=== PATIENT | male | born 1935 | race Caucasian/White ===

== ENCOUNTER 2016-11-04 10:56 | Outpatient (CLI) | payer MEDICARE | END 2016-11-04 10:57 | disposition home or self-care (01) | DX: C61 Malignant neoplasm of prostate (principal) | CPT/HCPCS: 78306; A9503 ==

== ENCOUNTER 2016-12-07 15:34 | Outpatient (CLI) | payer MEDICARE | END 2016-12-07 15:35 | disposition home or self-care (01) | DX: E03.9 Hypothyroidism, unspecified (principal); Z79.899 Other long term (current) drug therapy ==

== ENCOUNTER 2017-02-01 16:05 | Outpatient (CLI) | payer MEDICARE | END 2017-02-01 16:06 | disposition home or self-care (01) | LOC: LAB.R 16:05 | PROVIDERS: ATTEND Internal Medicine | DX: E03.9 Hypothyroidism, unspecified (principal); Z79.899 Other long term (current) drug therapy | CPT/HCPCS: 84443 ==

== ENCOUNTER 2017-06-09 08:00 | Outpatient (CLI) | payer MEDICARE | END 2017-06-09 08:01 | disposition home or self-care (01) | LOC: LAB.R 08:00 | PROVIDERS: ATTEND Internal Medicine | DX: Z79.899 Other long term (current) drug therapy (principal); E03.9 Hypothyroidism, unspecified | CPT/HCPCS: 84443 ==

== ENCOUNTER 2017-08-27 12:39 | Outpatient (CLI) | payer MEDICARE | END 2017-08-27 12:40 | disposition home or self-care (01) | LOC: LAB.R 12:39 | PROVIDERS: ATTEND Internal Medicine | DX: E03.9 Hypothyroidism, unspecified (principal) | CPT/HCPCS: 84443 ==

== ENCOUNTER 2017-10-26 15:25 | Outpatient (CLI) | payer MEDICARE | END 2017-10-26 15:26 | disposition home or self-care (01) | LOC: LAB.R 15:25 | PROVIDERS: ATTEND Internal Medicine | DX: E03.9 Hypothyroidism, unspecified (principal) | CPT/HCPCS: 84443 ==

== ENCOUNTER 2017-12-14 08:00 | Outpatient (CLI) | payer MEDICARE ==
[2017-12-14 18:37] LABS: CALCIUM 8.8 mg/dL (8.5-10.3); CREATININE 1.3 mg/dL (0.6-1.2)
== END 2017-12-14 08:01 ==
LOC: LAB.R 08:00
PROVIDERS: ATTEND Internal Medicine
DX: N18.9 Chronic kidney disease, unspecified (principal)
CPT/HCPCS: 80048

== ENCOUNTER 2018-04-04 12:14 | Outpatient (CLI) | payer MEDICARE ==
--- NOTE | 2018-04-04 15:47 | XRAY Report ---
Procedure Date: 04/04/2018 Accession Number: [id number] / [id number] Procedure: XR - Pelvis 1 View CPT Code: FULL RESULT: EXAM: Pelvis 1 View DATE: 04/04/2018 1:02 PM CLINICAL HISTORY: LBP COMPARISON: None. TECHNIQUE: 1 view. FINDINGS: Bones: Normal. No fracture or bone lesion. Joints: Loss of femoral acetabular joint space, moderate bilaterally. Pubic symphysis is unremarkable bilaterally. Soft Tissues: Prostatic radiation seeds. 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 RADIA
--- NOTE | 2018-04-04 19:19 | XRAY Report ---
Procedure Date: 04/04/2018 Accession Number: [id number] / [id number] Procedure: XR - Lumbar Spine 2 View CPT Code: FULL RESULT: EXAM: Lumbar Spine 2 View DATE: 04/04/2018 1:02 PM CLINICAL HISTORY: Low back pain after fall COMPARISON: 01/18/2015. TECHNIQUE: 2 views. FINDINGS: There are 5 nonrib-bearing vertebral bodies. Interval development of a compression fracture of L1 with 50% loss of height. The compression fracture of L2 is again seen, similar in appears 50-75% loss of height. There is now early development of severe lumbar kyphosis centered about the tube prolapsed vertebral bodies. Advanced atherosclerotic disease is noted. IMPRESSION: Interval development of a compression fracture of L1. RADIA
== END 2018-04-04 12:15 | disposition home or self-care (01) ==
LOC: DI 12:14
PROVIDERS: ATTEND Internal Medicine
DX: S32.019A Unspecified fracture of first lumbar vertebra, initial encounter for closed fracture (principal); M16.0 Bilateral primary osteoarthritis of hip
CPT/HCPCS: 72100; 72170

== ENCOUNTER 2018-06-13 11:14 | Outpatient (CLI) | payer MEDICARE ==
--- NOTE | 2018-06-13 17:38 | XRAY Report ---
Reason: LUNG NODULE Procedure Date: 06/13/2018 Accession Number: [id number] / [id number] Procedure: XR - Chest 2 View X-Ray CPT Code: 08043 FULL RESULT: EXAM: CHEST RADIOGRAPHY EXAM DATE: 06/13/2018 11:28 AM. CLINICAL HISTORY: LUNG NODULE. COMPARISON: 03/09/2012 TECHNIQUE: 2 views. FINDINGS: Lungs/Pleura: Nodular area of increased density projected over the mid to lower left chest, likely related to the left fourth rib, present 03/09/2012 and 02/08/2006 and likely stable. No focal opacities evident. No pleural effusion. No pneumothorax. Normal volumes. Mediastinum: Heart and mediastinal contours are unremarkable. Dual-lead left subclavian transvenous pacemaker. Small hiatal hernia. Other: Dense right sixth lateral rib, question blastic lesion versus trauma. Additional increased density lower lateral right rib. Degenerative change in the spine with multiple compression fractures IMPRESSION: Right rib densities as above new since 2011, question blastic lesion versus posttraumatic. Stable left mid chest lesion, likely related to the left fourth rib. Clear lungs.
== END 2018-06-13 11:15 | disposition home or self-care (01) ==
LOC: DI 11:14
PROVIDERS: ATTEND Internal Medicine
DX: R91.8 Other nonspecific abnormal finding of lung field (principal)
CPT/HCPCS: 71046

== ENCOUNTER 2019-02-20 15:54 | Outpatient (CLI) | payer MEDICARE ==
[2019-02-20 16:12] LABS: BASOPHILS % (AUTO) 0.5 %; EOSINOPHILS # (AUTO) 0.1 10^3/uL (0.0-0.7); EOSINOPHILS % (AUTO) 0.9 %; HGB - HEMOGLOBIN 13.1 g/dL (14.0-18.0); LYMPHOCYTES # (AUTO) 1.8 10^3/uL (1.5-3.5); LYMPHOCYTES % (AUTO) 26.9 %; MEAN CORPUSCULAR HEMOGLOBIN 32.6 pg (27.0-31.0); MEAN CORPUSCULAR HGB CONC 33.2 g/dL (32.0-36.0); MEAN PLATELET VOLUME 9.1 fL (7.4-11.4); MONOCYTES # (AUTO) 0.8 10^3/uL (0.0-1.0); MONOCYTES % (AUTO) 12.5 %; NEUTROPHILS # (AUTO) 3.9 10^3/uL (1.5-6.6); NEUTROPHILS % (AUTO) 58.7 %; PLT - PLATELET COUNT 227 10^3/uL (130-450); RED BLOOD COUNT 4.02 10^6/uL (4.70-6.10); RED CELL DISTRIBUTION WIDTH 12.6 % (12.0-15.0); WHITE BLOOD COUNT 6.6 x10^3/uL (4.8-10.8)
[2019-02-20 16:24] LABS: ALBUMIN 4.1 g/dL (3.2-5.5); ALBUMIN/GLOBULIN RATIO 1.5 (1.0-2.2); BILIRUBIN,TOTAL 1.2 mg/dL (0.2-1.0); CREATININE 1.5 mg/dL (0.6-1.2); TOTAL PROTEIN 6.9 g/dL (6.7-8.2)
[2019-02-20 16:38] LABS: T4 (THYROXINE) 8.44 ug/dL (6.09-12.23)
[2019-02-20 16:42] LABS: THYROID STIMULATING HORMONE 2.23 uIU/mL (0.34-5.60)
== END 2019-02-20 15:55 | disposition home or self-care (01) ==
LOC: LAB 15:54
PROVIDERS: ATTEND Family Medicine
DX: E87.1 Hypo-osmolality and hyponatremia (principal); I10 Essential (primary) hypertension; E03.9 Hypothyroidism, unspecified
CPT/HCPCS: 80053; 84436; 84443; 84481; 85025

== ENCOUNTER 2019-03-07 11:45 | Outpatient (CLI) | payer MEDICARE ==
--- NOTE | 2019-03-08 08:57 | Nuclear Medicine Report ---
Reason: PROSTATE CA Procedure Date: 03/07/2019 Accession Number: [id number] / [id number] Procedure: NM - Bone Whole Body CPT Code: FULL RESULT: EXAM: BONE SCAN EXAM DATE: 03/07/2019 04:13 PM. CLINICAL HISTORY: PROSTATE CA. COMPARISON: BONE WHOLE BODY 11/04/2016 9:50 AM PELVIS 1 VIEW 04/04/2018 12:27 PM. TECHNIQUE: Following the intravenous administration of 33 mCi of technetium 99m MDP and an appropriate delay, a whole-body scan was performed in anterior and posterior projections. Site-specific spot views of the region of interest were obtained in various projections. FINDINGS: Normal renal radiotracer uptake and bladder activity. Normal soft tissue activity. Overall normal osseous uptake. There is increased fairly intense uptake at approximately T12, indeterminate, metastasis and/or compression fracture are diagnostic considerations. Otherwise largely similar mild multilevel lumbar spinal uptake. Previously identified uptake at the right posterior sixth rib has resolved. There is decreased mild to moderate uptake at the bilateral first ribs. There is new mild focal uptake at the left anterior third rib, possibly posttraumatic. There is a similar focal uptake in the region of the superior left SI joint/posterior ilium and at the posterior right iliac wing. There is slightly decreased uptake at the lateral left iliac wing. There is new mild to moderate somewhat linear uptake at the mid sacrum horizontally and in the region of the SI joints bilaterally, metastatic disease versus sacral insufficiency fracture. IMPRESSION: 1. Previously identified rib lesions showed decreased uptake. New mild focal uptake at the left anterior third rib, possibly posttraumatic. 2. New mild to moderate somewhat linear uptake at the mid sacrum and in the region of the SI joints bilaterally, indeterminate, metastatic disease versus sacral insufficiency fracture. 3. Increased fairly intense uptake at T12, indeterminate, metastasis and/or compression fracture are diagnostic considerations. RADIA
== END 2019-03-07 11:46 | disposition home or self-care (01) ==
LOC: MAC.CH 11:45
PROVIDERS: ATTEND Internal Medicine Hematology & Oncology
DX: C61 Malignant neoplasm of prostate (principal)
CPT/HCPCS: 78306

== ENCOUNTER 2019-04-28 20:15 | Outpatient (CLI) | payer MEDICARE | END 2019-04-28 20:16 | disposition EMS.NT | LOC: EMS 20:15 | PROVIDERS: ATTEND Surgery | DX: R53.1 Weakness (principal) ==

== ENCOUNTER 2019-04-28 21:48 | Outpatient (CLI) | payer MEDICARE | END 2019-04-28 21:49 | disposition EMS.NT | LOC: EMS 21:48 | PROVIDERS: ATTEND Surgery | DX: R53.1 Weakness (principal) ==

== ENCOUNTER 2020-02-23 18:26 | Outpatient (CLI) | payer MEDICARE | END 2020-02-23 18:27 | disposition critical access hospital (66) | LOC: EMS 18:26 | PROVIDERS: ATTEND Surgery | DX: R11.0 Nausea (principal); R53.1 Weakness; R26.81 Unsteadiness on feet | CPT/HCPCS: A0425; A0429 ==

== ENCOUNTER 2020-02-23 18:37 | Emergency (ER) | payer MEDICARE ==
[2020-02-23] MEDS ORDERED: SODIUM CHLORIDE 0.9% 1,000 ML IV STA (18:59)
[2020-02-23 19:18] LABS: BASOPHILS % (AUTO) 0.2 %; EOSINOPHILS % (AUTO) 0.1 %; HGB - HEMOGLOBIN 15.2 g/dL (14.0-18.0); LYMPHOCYTES % (AUTO) 10.2 %; MEAN CORPUSCULAR HEMOGLOBIN 32.7 pg (27.0-31.0); MEAN CORPUSCULAR VOLUME 93.3 fL (80.0-94.0); MEAN PLATELET VOLUME 10.3 fL (7.4-11.4); NEUTROPHILS # (AUTO) 8.1 10^3/uL (1.5-6.6); NEUTROPHILS % (AUTO) 78.9 %; PLT - PLATELET COUNT 229 10^3/uL (130-450); RED BLOOD COUNT 4.65 10^6/uL (4.70-6.10); RED CELL DISTRIBUTION WIDTH 15.3 % (12.0-15.0); WHITE BLOOD COUNT 10.2 x10^3/uL (4.8-10.8)
[2020-02-23 19:30] LABS: ALBUMIN 3.9 g/dL (3.2-5.5); ALBUMIN/GLOBULIN RATIO 1.2 (1.0-2.2); CALCIUM 9.6 mg/dL (8.5-10.3); CREATININE 1.6 mg/dL (0.6-1.2); TOTAL PROTEIN 7.1 g/dL (6.7-8.2)
[2020-02-23 20:51] LABS: GLUCOSE, URINE (UA) NEGATIVE (NEGATIVE); KETONES,URINE (UA) NEGATIVE (NEGATIVE); LEUKOCYTE ESTERASE, URINE NEGATIVE (NEGATIVE); NITRITE,URINE NEGATIVE (NEGATIVE); OCCULT BLOOD,URINE NEGATIVE (NEGATIVE); PH,URINE 5.5 PH (5.0-7.5); PROTEIN,URINE 100 mg/dL (NEGATIVE); UROBILINOGEN,URINE 0.2 (NORMAL) E.U./dL (NORMAL)
[2020-02-23 21:07] LABS: BILIRUBIN,URINE NEGATIVE (NEGATIVE); CLARITY,URINE CLEAR (CLEAR); ICTOTEST,URINE NEGATIVE
[2020-02-23 21:12] LABS: BACTERIA,URINE Rare /HPF (None Seen); RBC,URINE 0-5 /HPF (0-5); SQUAMOUS EPITHELIAL CELL,UR FEW Squamous (<= Few)
[2020-02-24 02:22] VITALS: BP 148/112
[2020-02-24] MEDS ORDERED: HEPARIN 5,000 UNIT/ML VIAL IVP STA (03:48)
[2020-02-24] MEDS ORDERED: HEPARIN 25000UNITS/500ML (D5W) 25,000 UNIT/500 ML BAG IV STA (03:48)
--- NOTE | 2020-02-24 03:56 | ED Physician Documentation ---
History of Present Illness - Stated complaint Stated Complaint: WEAKNESS, NAUSEA, CONCERNED ABOUT COVID - Chief complaint Chief Complaint: General - History obtained from History obtained from: Patient, Family (daughter (in ED at bedside)) - History of Present Illness Timing: Yesterday Pain level now: 0 Improved by: rest Worsened by: attempts at standing, ambulating Associated symptoms: weakness, poor appetite - Additonal information Additional information: c/o generalized weakness since yesterday, predominantly BLE; progressing to the point of not being able to stand up and ambulate (usually uses walker). Also c/o poor appetite since yesterday. Review of Systems Constitutional: reports: Fatigue. denies: Fever, Chills, Sweats Eyes: reports: Reviewed and negative Ears: reports: Reviewed and negative Nose: reports: Reviewed and negative Throat: reports: Reviewed and negative Cardiac: reports: Pedal edema. denies: Chest pain / pressure, Palpitations, Calf pain Respiratory: reports: Dyspnea. denies: Cough, Hemoptysis, Wheezing GI: denies: Abdominal Pain, Nausea, Vomiting, Constipation, Diarrhea : denies: Dysuria, Frequency Skin: reports: Reviewed and negative Musculoskeletal: reports: Extremity swelling Neurologic: reports: Generalized weakness. denies: Focal weakness, Numbness, Confused, Altered mental status, Headache PD PAST MEDICAL HISTORY - Past Medical History Past Medical History: Yes Cardiovascular: Hypertension, Other Respiratory: None Endocrine/Autoimmune: None GI: None, Colon polyps : Other HEENT: Chronic hearing loss Psych: None Musculoskeletal: Other Derm: Other Other Past Medical History: prostate cancer - Past Surgical History Past Surgical History: Yes - Present Medications Home Medications: Ambulatory Orders Medication Instructions Recorded Confirmed Aspirin Chewable [[place] 81 mg PO DAILY 01/12/13 08/29/19 Aspirin] Calcium [Calcio Oral] 600 mg PO DAILY 01/12/13 08/29/19 Levothyroxine [Synthroid] 1 - 2 tab PO QDAC 01/12/13 08/29/19 Metoprolol Succinate [Toprol Xl] 50 mg PO DAILY 01/12/13 08/29/19 hydroCHLOROthiazide [Hydrodiuril] 25 mg PO DAILY 01/12/13 08/29/19 Losartan [Cozaar] 100 mg PO DAILY 04/16/15 08/29/19 Magnesium 400 mg PO DAILY 04/16/15 08/29/19 Multivitamin [Multivitamins] 1 each PO DAILY 04/30/15 08/29/19 Enzalutamide [Xtandi] 4 cap PO DAILY 12/08/16 08/29/19 Enzalutamide [Xtandi] 160 mg PO DAILY 05/30/19 08/29/19 - Allergies Allergies/Adverse Reactions: Allergies Allergy/AdvReac Type Severity Reaction Status Date / Time Sulfa (Sulfonamide Allergy Unknown Rash Verified 02/23/20 18:59 Antibiotics) niacin AdvReac Nausea Verified 02/23/20 18:59 [id number] Reductase AdvReac Nausea Verified 02/23/20 18:59 Inhibitor - Social History Does the pt smoke?: No Smoking Status: Never smoker PD ED PE NORMAL - Vitals Vital signs reviewed: Yes - General General: Alert and oriented X 3, No acute distress, Well developed/nourished - HEENT HEENT: Moist mucous membranes - Neck Neck: Supple, no meningeal sign - Cardiac Cardiac: No murmur - Respiratory Respiratory: No respiratory distress - Abdomen Abdomen: Normal bowel sounds, Soft, Non tender - Back Back: No CVA TTP - Derm Derm: Normal color, Warm and dry - Neuro Neuro: Alert and oriented X 3, 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, No motor deficit, No sensory deficit, Normal speech Eye Opening: Spontaneous Motor: Obeys Commands Verbal: Oriented GCS Score: 15 PD ED PE EXPANDED - Cardiac Cardiac: Regular Rhythm (occasional extra beats) - Respiratory Respiratory: Rales (bibasilar rales with diminished breath sounds LLL) - Extremities Extremities: Pedal edema bilateral Results - Vitals Vitals: Vital Signs - 24 hr 02/23/20 02/23/20 02/23/20 18:45 20:00 22:12 Temperature 36.6 C Heart Rate 83 87 70 Respiratory 18 24 26 H Rate Blood Pressure 151/98 H 141/92 H 157/96 H O2 Saturation 95 96 96 02/24/20 02/24/20 00:07 02:08 Temperature Heart Rate 84 87 Respiratory 28 H 29 H Rate Blood Pressure 145/101 H 148/112 H O2 Saturation 94 95 Oxygen O2 Source Room air - EKG (time done) No standard instances Rate: Rate (enter#) (86) Rhythm: Paced - Labs Labs: Laboratory Tests 02/23/20 02/23/20 02/23/20 19:12 19:12 19:12 WBC 10.2 RBC 4.65 L Hgb 15.2 Hct 43.4 MCV 93.3 MCH 32.7 H MCHC 35.0 RDW 15.3 H Plt Count 229 MPV 10.3 Neut # (Auto) 8.1 H Lymph # (Auto) 1.0 L Tift # (Auto) 1.0 Eos # (Auto) 0.0 Baso # (Auto) 0.0 Absolute Nucleated RBC 0.00 Nucleated RBC % 0.0 Sodium 132 L Potassium 3.5 Chloride 91 L Carbon Dioxide 25 Anion Gap 16.0 H BUN 56 H Creatinine 1.6 H Estimated GFR (MDRD) 41 L Glucose 130 H Calcium 9.6 Total Bilirubin 2.0 H AST 43 H ALT 25 Alkaline Phosphatase 62 Total Creatine Kinase CK-MB (CK-2) Troponin I High Sens B-Natriuretic Peptide 4926 H Total Protein 7.1 Albumin 3.9 Globulin 3.2 Albumin/Globulin Ratio 1.2 Lipase 30 Urine Color Urine Clarity Urine pH Ur Specific [place] Urine Protein Urine Glucose (UA) Urine Ketones Urine Occult Blood Urine Nitrite Urine Bilirubin Urine Urobilinogen Ur Leukocyte Esterase Urine RBC Urine WBC Ur Squamous Epith Cells Urine Bacteria Ur Microscopic Review Urine Culture Comments 02/23/20 02/23/20 02/23/20 19:12 19:12 20:45 WBC RBC Hgb Hct MCV MCH MCHC RDW Plt Count MPV Neut # (Auto) Lymph # (Auto) Tift # (Auto) Eos # (Auto) Baso # (Auto) Absolute Nucleated RBC Nucleated RBC % Sodium Potassium Chloride Carbon Dioxide Anion Gap BUN Creatinine Estimated GFR (MDRD) Glucose Calcium Total Bilirubin AST ALT Alkaline Phosphatase Total Creatine Kinase 166 CK-MB (CK-2) 27.4 H Troponin I High Sens B-Natriuretic Peptide Total Protein Albumin Globulin Albumin/Globulin Ratio Lipase Urine Color YELLOW Urine Clarity CLEAR Urine pH 5.5 Ur Specific [place] >=1.030 H Urine Protein 100 H Urine Glucose (UA) NEGATIVE Urine Ketones NEGATIVE Urine Occult Blood NEGATIVE Urine Nitrite NEGATIVE Urine Bilirubin NEGATIVE Urine Urobilinogen 0.2 (NORMAL) Ur Leukocyte Esterase NEGATIVE Urine RBC 0-5 Urine WBC 0-3 Ur Squamous Epith Cells FEW Squamous Urine Bacteria Rare Ur Microscopic Review INDICATED Urine Culture Comments NOT INDICATED 02/24/20 00:55 WBC RBC Hgb Hct MCV MCH MCHC RDW Plt Count MPV Neut # (Auto) Lymph # (Auto) Tift # (Auto) Eos # (Auto) Baso # (Auto) Absolute Nucleated RBC Nucleated RBC % Sodium Potassium Chloride Carbon Dioxide Anion Gap BUN Creatinine Estimated GFR (MDRD) Glucose Calcium Total Bilirubin AST ALT Alkaline Phosphatase Total Creatine Kinase CK-MB (CK-2) Troponin I High Sens 4787.6 H* B-Natriuretic Peptide Total Protein Albumin Globulin Albumin/Globulin Ratio Lipase Urine Color Urine Clarity Urine pH Ur Specific [place] Urine Protein Urine Glucose (UA) Urine Ketones Urine Occult Blood Urine Nitrite Urine Bilirubin Urine Urobilinogen Ur Leukocyte Esterase Urine RBC Urine WBC Ur Squamous Epith Cells Urine Bacteria Ur Microscopic Review Urine Culture Comments - Rads (name of study) cxr Radiology: Prelim report reviewed, See rad report PD MEDICAL DECISION MAKING - ED course Complexity details: reviewed old records, reviewed results, re-evaluated patient, considered differential, d/w patient, d/w family ED course: After initial tests resulted, CHF suspected (given CXR and BNP; of note, most recent CXR was May 2018 and no cardiomegaly at that time (adriana's cxr demonstrated "moderate to advanced cardiac silhouette enlargement" as well as "diffuse prominence of pulmonary vascularity")). EKG shows paced rhythm. HsTni is 4787.6. D/W Dr. Lowery (cardiology transactional attorney at [place]), agrees patient would be appropriate for transfer to [place], recommends hospitalist service. D/W Dr. Marcano, accepts to hospitalist service, recommends heparin drip, which was subsequently started in [facility] ED. Departure - Departure Disposition: 02 Transfer Acute Care Hosp Clinical Impression: NSTEMI (non-ST elevated myocardial infarction) Condition: Stable Discharge Date/Time: 02/24/20 05:40
--- NOTE | 2020-02-24 08:13 | XRAY Report ---
PROCEDURE: Chest 1 View X-Ray INDICATIONS: chest pain TECHNIQUE: One view of the chest was acquired. COMPARISON: Chest films dated 06/13/2018 FINDINGS: Surgical changes and devices: Left chest pacemaker. Lungs and pleura: Interstitial pulmonary edema. Left basilar atelectasis. Small left pleural effusion . Mediastinum: Mediastinal contours appear normal. Cardiomegaly. Bones and chest wall: Sclerotic posterior right sixth rib again noted, consistent with bony metastati c disease. Overlying soft tissues appear unremarkable. IMPRESSION: 1. Congestive heart failure exacerbation. 2. Known bony metastatic disease. A preliminary report with the above findings was provided at the time of the study by [facility]. Reviewed by: Nnamdi Ledezma MD on 02/24/2020 7:12 AM ROHAN Approved by: Nnamdi Ledezma MD on 02/24/2020 7:12 AM ROHAN Station ID: [id number]
== END 2020-02-24 05:40 | disposition short-term general hospital (02) ==
LOC: EDUNIT# → ED 18:37
DX: I21.4 Non-ST elevation (NSTEMI) myocardial infarction (principal); I50.9 Heart failure, unspecified; I11.0 Hypertensive heart disease with heart failure; Z95.0 Presence of cardiac pacemaker; Z85.46 Personal history of malignant neoplasm of prostate; C79.51 Secondary malignant neoplasm of bone; Z79.82 Long term (current) use of aspirin
CPT/HCPCS: 36415; 71045; 80053; 81001; 81003; 82550; 82553; 83690; 83880; 84484; 85025; 87086; 93005; 96361; 96374; 99285